=== PATIENT | female | born 1995 | race Caucasian/White ===

== ENCOUNTER 2017-03-13 09:31 | Emergency (ER) | payer MEDICAID, OTHER ==
[~2017-03-13] VITALS: Ht 167.6 cm; Wt 61.4 kg
[~2017-03-13 09:31] MED LIST: ACETAMINOPHEN W1 TA6 PO; CEPHALEXIN500 M1 PO; LEXAPRO20 MG PO; MAGIC MOUTH PO; MOTRIN 800800 MG/TAB PO; NO HOME MEDICATIONS; PRENATAL; ZITHROMAX500 M2 PO
[2017-03-13 09:34] VITALS: TEMP 98.3
[2017-03-13] MEDS ORDERED: NORCO 325 MG-51 TAB PO (10:47)
[2017-03-13 11:09] VITALS: BP 120/71; PULSE 64
== END 2017-03-13 11:12 | disposition home or self-care (01) ==
LOC: COL.ER 09:31
DX: S62.316A Displaced fracture of base of fifth metacarpal bone, right hand, initial encounter for closed fracture (principal); W22.8XXA Striking against or struck by other objects, initial encounter; Y92.009 Unspecified place in unspecified non-institutional (private) residence as the place of occurrence of the external cause

== ENCOUNTER 2018-09-27 11:15 | Emergency (ER) | payer MEDICAID ==
[~2018-09-27] VITALS: Ht 167.6 cm; Wt 55.5 kg
[~2018-09-27 11:15] MED LIST changes: +NORCO 325 MG-51 TAB PO
[2018-09-27 11:17] VITALS: TEMP 98
[2018-09-27] MEDS ORDERED: CEPHALEXIN500 M1 PO (13:19)
[2018-09-27 13:34] VITALS: BP 99/71; PULSE 82
== END 2018-09-27 13:45 | disposition home or self-care (01) ==
LOC: COL.ER 11:15
DX: S91.311A Laceration without foreign body, right foot, initial encounter (principal); Z23 Encounter for immunization; W25.XXXA Contact with sharp glass, initial encounter; Y92.009 Unspecified place in unspecified non-institutional (private) residence as the place of occurrence of the external cause

== ENCOUNTER 2018-10-05 11:52 | Emergency (ER) | payer MEDICAID ==
[2018-10-05 12:01] VITALS: BP 107/63; PULSE 83; TEMP 97.6
== END 2018-10-05 12:03 | disposition home or self-care (01) ==
LOC: COL.ER 11:52
DX: S91.311D Laceration without foreign body, right foot, subsequent encounter (principal); X58.XXXD Exposure to other specified factors, subsequent encounter

== ENCOUNTER 2018-12-23 10:58 | Emergency (ER) | payer MEDICAID ==
[~2018-12-23] VITALS: Ht 167.6 cm; Wt 53.3 kg
[2018-12-23 11:02] VITALS: BP 109/65; PULSE 87; TEMP 98.5
[2018-12-23] MEDS ORDERED: SPRINTEC 35 MCG1 TAB PO (11:16)
[2018-12-23] MEDS ORDERED: ADDERALL XR20 MG PO (11:17)
[2018-12-23] MEDS ORDERED: DESYREL 50MG50 MG PO (11:18)
[2018-12-23] MEDS ORDERED: MOBIC15 MG PO (11:19)
[2018-12-23] MEDS ORDERED: PROZAC 10MG10 MG PO (11:21)
[2018-12-23] MEDS ORDERED: PREDNISONE20 MG PO (11:22)
[2018-12-23] MEDS ORDERED: FLEXERIL5 MG PO (11:22)
== END 2018-12-23 11:45 | disposition home or self-care (01) ==
LOC: COL.ER 10:58
DX: L50.9 Urticaria, unspecified (principal); F32.9 Major depressive disorder, single episode, unspecified; F41.9 Anxiety disorder, unspecified; F98.8 Other specified behavioral and emotional disorders with onset usually occurring in childhood and adolescence

== ENCOUNTER 2019-01-13 06:42 | Emergency (ER) | payer MEDICAID ==
[~2019-01-13] VITALS: Ht 167.6 cm; Wt 53.6 kg
[~2019-01-13 06:42] MED LIST changes: +ADDERALL XR20 MG PO; +DESYREL 50MG50 MG PO; +FLEXERIL5 MG PO; +MOBIC15 MG PO; +PREDNISONE20 MG PO; +PROZAC 10MG10 MG PO; +SPRINTEC 35 MCG1 TAB PO
[2019-01-13 06:47] VITALS: TEMP 98.7
[2019-01-13] MEDS ORDERED: ATARAX 10MG10 MG/TAB PO (07:10)
[2019-01-13] MEDS ORDERED: FLEXERIL 1010 MG/TAB PO (07:29)
[2019-01-13 08:26] VITALS: BP 104/75; PULSE 78
== END 2019-01-13 08:43 | disposition home or self-care (01) ==
LOC: COL.ER 06:42
DX: S06.0X0A Concussion without loss of consciousness, initial encounter (principal); S16.1XXA Strain of muscle, fascia and tendon at neck level, initial encounter; S39.012A Strain of muscle, fascia and tendon of lower back, initial encounter; R40.2410 Glasgow coma scale score 13-15, unspecified time; V43.52XA Car driver injured in collision with other type car in traffic accident, initial encounter
CPT/HCPCS: J1200; J2765

== ENCOUNTER 2019-05-12 19:42 | Emergency (ER) | payer MEDICAID ==
[~2019-05-12] VITALS: Ht 167.6 cm; Wt 53.6 kg
[~2019-05-12 19:42] MED LIST changes: +ATARAX 10MG10 MG/TAB PO; +FLEXERIL 1010 MG/TAB PO
[2019-05-12 20:50] LABS: BASO % 0.1 % (0.0-2.0); EOS % 0.2 % (0-4.0); GRAN # 6.9 (1.4-6.5); GRAN % 73.6 % (42.2-75.2); HEMATOCRIT 40.7 % (37.0-47.0); HEMOGLOBIN 14.1 g/dl (12.5-16.0); LYMPH # 1.7 (1.2-3.4); MEAN CELL VOLUME 92 fl (80.0-100.0); MEAN CORPUSCULAR HEMOGLOBIN 32 pg (27.0-31.0); MEAN CORPUSCULAR HGB CONC 35 g/dl (33.0-37.0); MEAN PLATELET VOLUME 10.5 fl (7.4-10.4); MONO # 0.7 (0.1-0.6); MONO % 7.9 % (1.7-9.3); PLATELET COUNT 234 K/mm3 (130-400); RED BLOOD COUNT 4.43 M/mm3 (4.10-5.30); REDCELL DISTRIBUTION WIDTH-CV 12.3 % (11.5-14.5)
[2019-05-12 20:55] LABS: STREP SCREEN NEGATIVE
[2019-05-12 21:01] LABS: ALBUMIN 3.9 gm/dL (3.5-5.0); BILIRUBIN,TOTAL 0.8 mg/dL (0.0-1.0); C-REACTIVE PROTEIN 4.9 mg/dL (0.0-0.9); CALCIUM 8.8 mg/dL (8.4-10.2); CREATININE, serum 0.69 (0.52-1.25); POTASSIUM 3.9 mmol/L (3.4-5.0); TOTAL PROTEIN 7.3 gm/dL (6.4-8.2)
[2019-05-12] MEDS ORDERED: PREDNISONE20 MG PO (23:16)
[2019-05-12 23:35] VITALS: BP 98/52; PULSE 91; TEMP 98.4
== END 2019-05-12 23:35 | disposition home or self-care (01) ==
LOC: COL.ER 19:42
PROVIDERS: Physician Assistant
DX: L50.9 Urticaria, unspecified (principal); F32.9 Major depressive disorder, single episode, unspecified; G43.909 Migraine, unspecified, not intractable, without status migrainosus; F41.9 Anxiety disorder, unspecified
CPT/HCPCS: J1100; J1200; J1885; J2405; J7030

== ENCOUNTER → 2019-07-11 | Outpatient (CLI) | payer MEDICAID | LOC: COL.RAD 06-25 08:15 | DX: M54.5 Low back pain (principal); R20.9 Unspecified disturbances of skin sensation ==

== ENCOUNTER → 2019-07-23 | Outpatient (CLI) | payer MEDICAID ==
[~2019-07-23] VITALS: Ht 167.6 cm; Wt 54.4 kg
[~2019-07-23] MED LIST changes: +KLONOPIN 0.5MG0.5 MG PO; +KLONOPIN 1MG1 MG PO
[2019-07-23 13:39] VITALS: BP 104/70; PULSE 94
[2019-07-23 15:23] VITALS: BP 94/66; PULSE 80
--- NOTE | 2019-07-23 16:08 | NUR ---
WENT TO SPEAK TO DR REDDY REGARDING PT PAIN, NUMBNESS AND TINGLING. HE IS AARE THAT PT AWILL BE TRANSFERED TO AT 1600. REPORTED OFF TO CONCEPCION NARANJO. SPOKE TO DR REDDY AND LET HIM KNOW NOTHING IS CHANGED.
== END ==
LOC: COL.RAD 13:26
DX: M54.5 Low back pain (principal)
CPT/HCPCS: J3301

== ENCOUNTER 2019-10-22 22:02 | Emergency (ER) | payer MEDICAID ==
[~2019-10-22] VITALS: Ht 167.6 cm; Wt 52.3 kg
[2019-10-22 22:03] VITALS: TEMP 97.6
[2019-10-22 22:46] LABS: COLLECTION METHOD CLEAN CATCH
[2019-10-22 22:58] LABS: MUCOUS Present /lpf; PH 7 (5-8); URINE APPEARANCE Hazy; URINE BACTERIA Rare /hpf; URINE BILIRUBIN Negative (NEGATIVE); URINE BLOOD Negative (NEGATIVE); URINE COLOR Yellow; URINE GLUCOSE Negative (NEGATIVE); URINE KETONE Trace (NEGATIVE); URINE LEUKOCYTE ESTERASE Negative (NEGATIVE); URINE NITRATE Negative (NEGATIVE); URINE PROTEIN(semi-quant) Negative (NEGATIVE); URINE RBC 0-2 /hpf; URINE UROBILINOGEN Negative (NEGATIVE)
[2019-10-23 00:26] VITALS: BP 109/70; PULSE 100
== END 2019-10-23 00:30 | disposition home or self-care (01) ==
LOC: COL.ER 22:02
PROVIDERS: Nurse Practitioner
DX: S30.0XXA Contusion of lower back and pelvis, initial encounter (principal); S24.109A Unspecified injury at unspecified level of thoracic spinal cord, initial encounter; F41.9 Anxiety disorder, unspecified; G43.909 Migraine, unspecified, not intractable, without status migrainosus; Z91.040 Latex allergy status; Z87.891 Personal history of nicotine dependence; W01.0XXA Fall on same level from slipping, tripping and stumbling without subsequent striking against object, initial encounter
CPT/HCPCS: J1170; J1885

== ENCOUNTER → 2019-12-27 | Outpatient (CLI) | payer MEDICAID ==
[~2019-12-27] VITALS: Ht 167.6 cm; Wt 47.4 kg
[2019-12-27 07:01] VITALS: BP 108/75; PULSE 78
[2019-12-27 07:45] VITALS: BP 101/70; PULSE 82
--- NOTE | 2019-12-27 08:15 | NUR ---
Pt able to stand and bear weight on left foot. Reports pain decreased to leg. Pt walks a few steps. Pt out to car per wheelchair. Pt up and into car without assistance.
== END ==
LOC: COL.RAD 06:30
DX: M51.26 Other intervertebral disc displacement, lumbar region (principal)
CPT/HCPCS: J3301

== ENCOUNTER 2020-01-31 17:55 | Emergency (ER) | payer MEDICAID ==
[~2020-01-31] VITALS: Ht 170.2 cm; Wt 52.3 kg
[2020-01-31 18:02] VITALS: BP 109/76; TEMP 99
[2020-01-31 18:47] LABS: COLLECTION METHOD CLEAN CATCH
[2020-01-31 18:52] LABS: BASO % 0.3 % (0.0-2.0); EOS # 0.1 (0.0-0.7); EOS % 1.2 % (0-4.0); GRAN # 3.7 (1.4-6.5); HEMATOCRIT 41.6 % (37.0-47.0); HEMOGLOBIN 14.2 g/dl (12.5-16.0); LYMPH # 2.3 (1.2-3.4); LYMPH % 34.2 % (20.0-51.0); MEAN CELL VOLUME 94 fl (80.0-100.0); MEAN CORPUSCULAR HEMOGLOBIN 32 pg (27.0-31.0); MEAN CORPUSCULAR HGB CONC 34 g/dl (33.0-37.0); MEAN PLATELET VOLUME 10.1 fl (7.4-10.4); MONO # 0.6 (0.1-0.6); MONO % 9.2 % (1.7-9.3); PLATELET COUNT 212 K/mm3 (130-400); RED BLOOD COUNT 4.45 M/mm3 (4.10-5.30)
[2020-01-31 18:54] LABS: MUCOUS Present /lpf; PH 5 (5-8); SQUAMOUS EPITHELIAL 0-2 /hpf; URINE APPEARANCE Clear; URINE BACTERIA None Seen /hpf; URINE BILIRUBIN Negative (NEGATIVE); URINE BLOOD 2+ (NEGATIVE); URINE COLOR Yellow; URINE GLUCOSE Negative (NEGATIVE); URINE KETONE Negative (NEGATIVE); URINE LEUKOCYTE ESTERASE Negative (NEGATIVE); URINE NITRATE Negative (NEGATIVE); URINE PROTEIN(semi-quant) 1+ (NEGATIVE)
[2020-01-31 19:01] LABS: ALBUMIN 4.2 gm/dL (3.5-5.0); BILIRUBIN,TOTAL 0.9 mg/dL (0.0-1.0); CALCIUM 9.1 mg/dL (8.4-10.2); CREATININE, serum 0.69 (0.52-1.25); POTASSIUM 3.9 mmol/L (3.4-5.0); TOTAL PROTEIN 7.6 gm/dL (6.4-8.2)
[2020-01-31] MEDS ORDERED: SPRINTEC 35 MCG1 TAB PO (19:53)
[2020-01-31 19:56] VITALS: PULSE 99
== END 2020-01-31 19:56 | disposition home or self-care (01) ==
LOC: COL.ER 17:55
PROVIDERS: Emergency Medicine
DX: S39.91XA Unspecified injury of abdomen, initial encounter (principal); N93.8 Other specified abnormal uterine and vaginal bleeding; Y04.2XXA Assault by strike against or bumped into by another person, initial encounter

== ENCOUNTER → 2020-05-12 | Outpatient (CLI) | payer MEDICAID | LOC: MHCPAIN 13:03 | DX: M53.3 Sacrococcygeal disorders, not elsewhere classified (principal); M54.5 Low back pain; G89.29 Other chronic pain; M79.2 Neuralgia and neuritis, unspecified | CPT/HCPCS: G0463 ==

== ENCOUNTER 2020-06-06 10:03 | Emergency (ER) | payer MEDICAID ==
[~2020-06-06] VITALS: Ht 167.6 cm; Wt 57.3 kg
[2020-06-06 11:20] LABS: COLLECTION METHOD CLEAN CATCH
[2020-06-06 11:27] LABS: BASO % 0.2 % (0.0-2.0); GRAN # 3.2 (1.4-6.5); GRAN % 73.4 % (42.2-75.2); HEMATOCRIT 45.6 % (37.0-47.0); HEMOGLOBIN 15.6 g/dl (12.5-16.0); LYMPH # 0.8 (1.2-3.4); MEAN CELL VOLUME 93 fl (80.0-100.0); MEAN CORPUSCULAR HEMOGLOBIN 32 pg (27.0-31.0); MEAN CORPUSCULAR HGB CONC 34 g/dl (33.0-37.0); MEAN PLATELET VOLUME 10.6 fl (7.4-10.4); MONO # 0.3 (0.1-0.6); MONO % 7.9 % (1.7-9.3); PLATELET COUNT 125 K/mm3 (130-400); RED BLOOD COUNT 4.88 M/mm3 (4.10-5.30); REDCELL DISTRIBUTION WIDTH-CV 11.5 % (11.5-14.5)
[2020-06-06 11:28] LABS: MUCOUS Present /lpf; PH 6 (5-8); URINE APPEARANCE Clear; URINE BACTERIA None Seen /hpf; URINE BILIRUBIN Negative (NEGATIVE); URINE BLOOD Negative (NEGATIVE); URINE COLOR Yellow; URINE GLUCOSE Negative (NEGATIVE); URINE KETONE Negative (NEGATIVE); URINE LEUKOCYTE ESTERASE Negative (NEGATIVE); URINE NITRATE Negative (NEGATIVE); URINE PROTEIN(semi-quant) Negative (NEGATIVE); URINE RBC 0-2 /hpf; URINE UROBILINOGEN Negative (NEGATIVE)
[2020-06-06 11:44] LABS: ALBUMIN 4.4 gm/dL (3.5-5.0); BILIRUBIN,TOTAL 0.5 mg/dL (0.0-1.0); C-REACTIVE PROTEIN 2.5 mg/dL (0.0-0.9); CALCIUM 9.3 mg/dL (8.4-10.2); CREATININE, serum 0.77 (0.52-1.25)
[2020-06-06 12:01] LABS: STREP SCREEN NEGATIVE
[2020-06-06 12:55] VITALS: TEMP 99
[2020-06-06 13:30] VITALS: BP 101/48; PULSE 92
== END 2020-06-06 13:31 | disposition home or self-care (01) ==
LOC: COL.ER 10:03
PROVIDERS: Nurse Practitioner
DX: R50.9 Fever, unspecified (principal); R21 Rash and other nonspecific skin eruption; L29.8 Other pruritus; Z20.828 Contact with and (suspected) exposure to other viral communicable diseases; Z91.040 Latex allergy status
CPT/HCPCS: J7030

== ENCOUNTER 2021-03-11 19:11 | Emergency (ER) | payer MEDICAID ==
[~2021-03-11] VITALS: Ht 167.6 cm; Wt 52.3 kg
[2021-03-11 19:12] VITALS: TEMP 98.9
[2021-03-11 19:32] LABS: BASO # 0.1 (0.0-0.2); BASO % 0.6 % (0.0-2.0); EOS # 0.1 (0.0-0.7); EOS % 0.6 % (0-4.0); GRAN # 4.8 (1.4-6.5); GRAN % 52.9 % (42.2-75.2); HEMATOCRIT 46.1 % (37.0-47.0); HEMOGLOBIN 15.8 g/dl (12.5-16.0); LYMPH # 3.4 (1.2-3.4); LYMPH % 37.5 % (20.0-51.0); MEAN CELL VOLUME 90 fl (80.0-100.0); MEAN CORPUSCULAR HEMOGLOBIN 31 pg (27.0-31.0); MEAN CORPUSCULAR HGB CONC 34 g/dl (33.0-37.0); MEAN PLATELET VOLUME 9.8 fl (7.4-10.4); MONO # 0.7 (0.1-0.6); MONO % 8.1 % (1.7-9.3); PLATELET COUNT 217 K/mm3 (130-400); RED BLOOD COUNT 5.14 M/mm3 (4.10-5.30); REDCELL DISTRIBUTION WIDTH-CV 12.5 % (11.5-14.5)
[2021-03-11 19:48] LABS: ALANINE AMINOTRANSFERASE 24 U/L (4-34); ALBUMIN 4.7 gm/dL (3.5-5.0); ALKALINE PHOSPHATASE 97 U/L (50-136); ANION GAP 10 mmol/L (7-16); AST,SGOT 36 U/L (15-37); BLOOD UREA NITROGEN 7 mg/dL (7-17); CALCIUM 9.2 mg/dL (8.4-10.2); CARBON DIOXIDE 26 mmol/L (22-30); CHLORIDE 101 mmol/L (98-107); CREATININE, serum 0.79 (0.52-1.25); GLUCOSE 248 mg/dL (74-106); POTASSIUM 3.1 mmol/L (3.4-5.0); SODIUM 137 mmol/L (137-145); TOTAL PROTEIN 7.7 gm/dL (6.4-8.2)
[2021-03-11 19:49] LABS: ACETAMINOPHEN < 10 ug/mL (10-30); ALCOHOL(ethanol),MEDICAL < 10 mg/dL; SALICYLATE < 1.0 mg/dL
[2021-03-11 20:00] VITALS: BP 126/87; PULSE 105
[2021-03-11 20:14] LABS: PROLACTIN 58.5 ng/mL (3.0-18.6)
== END 2021-03-11 20:00 | disposition left against medical advice (07) ==
LOC: COL.ER 19:11
PROVIDERS: Emergency Medicine
DX: R40.4 Transient alteration of awareness (principal); G40.909 Epilepsy, unspecified, not intractable, without status epilepticus; F41.9 Anxiety disorder, unspecified; F90.9 Attention-deficit hyperactivity disorder, unspecified type; Z79.899 Other long term (current) drug therapy

== ENCOUNTER 2021-11-18 20:53 | Emergency (ER) | payer MEDICAID ==
[~2021-11-18] VITALS: Ht 165.1 cm; Wt 54.5 kg
[2021-11-18 21:55] LABS: STREP SCREEN NEGATIVE
[2021-11-18 23:04] LABS: MONOSCREEN POSITIVE
[2021-11-18 23:25] VITALS: BP 90/59; PULSE 91; TEMP 98.2
== END 2021-11-18 23:32 | disposition home or self-care (01) ==
LOC: COL.ER 20:53
PROVIDERS: Nurse Practitioner Primary Care
DX: B27.90 Infectious mononucleosis, unspecified without complication (principal); Z20.822 Contact with and (suspected) exposure to COVID-19; Z28.310 Unvaccinated for COVID-19

== ENCOUNTER 2022-01-27 11:29 | Emergency (ER) | payer MEDICAID ==
[~2022-01-27] VITALS: Ht 170.2 cm; Wt 54.5 kg
[2022-01-27 11:33] VITALS: TEMP 97.1
[2022-01-27] MEDS ORDERED: CRUTCHES MC (13:25)
[2022-01-27 13:50] VITALS: BP 108/78; PULSE 90
== END 2022-01-27 13:50 | disposition home or self-care (01) ==
LOC: COL.ER 11:29
DX: S82.101A Unspecified fracture of upper end of right tibia, initial encounter for closed fracture (principal); S00.93XA Contusion of unspecified part of head, initial encounter; S60.512A Abrasion of left hand, initial encounter; S60.511A Abrasion of right hand, initial encounter; Z91.040 Latex allergy status; Z87.891 Personal history of nicotine dependence; Z28.310 Unvaccinated for COVID-19; V28.0XXA Motorcycle driver injured in noncollision transport accident in nontraffic accident, initial encounter; Y92.410 Unspecified street and highway as the place of occurrence of the external cause
CPT/HCPCS: J2270; L1830; L1846

== ENCOUNTER 2022-07-26 09:00 | Emergency (ER) | payer MEDICAID ==
[~2022-07-26] VITALS: Ht 167.6 cm; Wt 59.1 kg
[~2022-07-26 09:00] MED LIST changes: +CRUTCHES MC
[2022-07-26 09:21] VITALS: TEMP 98.3
[2022-07-26 09:52] LABS: COLLECTION METHOD CLEAN CATCH
[2022-07-26 10:08] LABS: MUCOUS Present (NOT PRESENT); URINE BACTERIA Rare /hpf (NONE SEEN); URINE RBC >50 /hpf (0-2)
[2022-07-26 10:10] LABS: URINE APPEARANCE Cloudy (CLEAR/HAZY); URINE BLOOD 3+ (NEGATIVE); URINE COLOR Yellow (YELLOW); URINE GLUCOSE Negative (NEGATIVE); URINE KETONE TRACE (NEGATIVE); URINE NITRATE Negative (NEGATIVE); URINE PROTEIN(semi-quant) 2+ (NEGATIVE); URINE UROBILINOGEN 0.2 E.U/dL (0.2-1.0)
[2022-07-26] MEDS ORDERED: CEPHALEXIN500 M1 PO (10:17)
[2022-07-26 10:38] VITALS: BP 98/62; PULSE 88
== END 2022-07-26 11:23 | disposition home or self-care (01) ==
LOC: COL.ER 09:00
PROVIDERS: Emergency Medicine
DX: N30.91 Cystitis, unspecified with hematuria (principal); Z91.040 Latex allergy status; Z28.310 Unvaccinated for COVID-19

== ENCOUNTER 2022-11-25 19:18 | Emergency (ER) | payer MEDICAID ==
[~2022-11-25] VITALS: Ht 165.1 cm; Wt 59.1 kg
[2022-11-25 19:21] VITALS: TEMP 99.5
[2022-11-25 19:57] LABS: BASO % 0.2 % (0.0-2.0); GRAN # 8.9 K/mm3 (1.4-6.5); GRAN % 79.7 % (42.2-75.2); HEMATOCRIT 40.4 % (37.0-47.0); HEMOGLOBIN 13.3 g/dl (12.5-16.0); LYMPH # 1.5 K/mm3 (1.2-3.4); LYMPH % 13.2 % (20.0-51.0); MEAN CELL VOLUME 94 fl (80.0-100.0); MEAN CORPUSCULAR HEMOGLOBIN 31 pg (27-31); MEAN CORPUSCULAR HGB CONC 33 g/dl (33.0-37.0); MEAN PLATELET VOLUME 10.5 fl (7.4-10.4); MONO # 0.8 K/mm3 (0.1-0.6); MONO % 6.7 % (1.7-9.3); PLATELET COUNT 240 K/mm3 (130-400); RED BLOOD COUNT 4.31 M/mm3 (4.10-5.30); REDCELL DISTRIBUTION WIDTH-CV 12.7 % (11.5-14.5)
[2022-11-25 20:22] LABS: ALBUMIN 4.3 gm/dL (3.5-5.0); BILIRUBIN,TOTAL 0.6 mg/dL (0.2-1.2); CALCIUM 9.5 mg/dL (8.4-10.2); CREATININE, serum 0.84 mg/dL (0.57-1.11); POTASSIUM 3.8 mmol/L (3.5-4.5); TOTAL PROTEIN 7.8 gm/dL (6.2-8.1)
[2022-11-25 21:39] VITALS: BP 112/71; PULSE 96
== END 2022-11-25 21:49 | disposition home or self-care (01) ==
LOC: COL.ER 19:18
PROVIDERS: Emergency Medicine
DX: R40.4 Transient alteration of awareness (principal); T40.2X1A Poisoning by other opioids, accidental (unintentional), initial encounter; Z91.040 Latex allergy status; Z28.311 Partially vaccinated for COVID-19
CPT/HCPCS: J2405

== ENCOUNTER 2023-08-19 01:16 | Emergency (ER) | payer MEDICAID ==
[~2023-08-19] VITALS: Ht 167.6 cm; Wt 63.6 kg
[~2023-08-19 01:16] MED LIST changes: +ATARAX 25MG25 MG/TAB PO; +CIPRODEX OT; +LEVAQUIN 5500 MG/TA1 PO; +PROZAC40 MG PO
[2023-08-19 01:28] VITALS: TEMP 97.8
[2023-08-19] MEDS ORDERED: CEPHALEXIN500 M1 PO (01:44)
[2023-08-19] MEDS ORDERED: NAPROSYN500 MG PO (01:44)
[2023-08-19] MEDS ORDERED: Clindamycin 150 MG CAP PO ONE (01:45)
[2023-08-19] MEDS ORDERED: Cephalexin 500 MG CAP PO ONE (01:45)
[2023-08-19] MEDS ORDERED: Naproxen 250 MG TAB PO ONE (01:45)
[2023-08-19 02:07] VITALS: BP 100/68; PULSE 97
== END 2023-08-19 02:07 | disposition home or self-care (01) ==
LOC: COL.ER 01:16
DX: L03.113 Cellulitis of right upper limb (principal); Z87.81 Personal history of (healed) traumatic fracture; Z91.040 Latex allergy status

== ENCOUNTER 2023-08-23 18:05 | Emergency (ER) | payer MEDICAID ==
[~2023-08-23] VITALS: Ht 167.6 cm; Wt 63.6 kg
[~2023-08-23 18:05] MED LIST changes: +NAPROSYN500 MG PO
[2023-08-23 18:37] VITALS: TEMP 98.2
[2023-08-23] MEDS ORDERED: BACTRIM DS 8001 TAB PO (18:59)
[2023-08-23 19:19] VITALS: BP 106/84; PULSE 102
== END 2023-08-23 19:21 | disposition home or self-care (01) ==
LOC: COL.ER 18:05
DX: L03.115 Cellulitis of right lower limb (principal); Z91.040 Latex allergy status

== ENCOUNTER 2023-12-14 08:36 | Inpatient (IN) | payer MEDICAID ==
[2023-12-14] VITALS (13 sets, daily range): BP systolic 107–121; BP diastolic 60–84; PULSE 69–102; TEMP 97.8–98.2
[~2023-12-14] VITALS: Ht 170.2 cm; Wt 68.2 kg
[~2023-12-14 08:36] MED LIST changes: +BACTRIM DS 8001 TAB PO
[2023-12-14] MEDS ORDERED: Measles/Mumps/Rubella Virus Vaccine Live w Diluent 0.5 ML VIAL SQ SCH (08:45)
[2023-12-14] MEDS ORDERED: Naloxone 0.4 MG/ML VIAL IV PRN (08:45)
[2023-12-14] MEDS ORDERED: Phenylephrine/Mineral Oil/Petrolatum 57 GM TUBE RC PRN (08:45)
[2023-12-14] MEDS ORDERED: Mag/Al Hydrox/Simeth Susp 30 ML CUP PO PRN (08:45)
[2023-12-14] MEDS ORDERED: Loratadine 10 MG TAB PO PRN (08:45)
[2023-12-14] MEDS ORDERED: LR 1,000 ML IV ONE (08:45)
[2023-12-14] MEDS ORDERED: Witch Hazel 50% Pads Bulk TUB TP PRN (08:45)
[2023-12-14] MEDS ORDERED: Magnes Hydrox (MOM) 80 MG/ML 30 ML CUP PO PRN (08:45)
[2023-12-14] MEDS ORDERED: LR & Oxytocin 500 ML IV SCH (09:00)
[2023-12-14 09:34] LABS: BASO # 0.1 K/mm3 (0.0-0.2); BASO % 0.3 % (0.0-2.0); EOS # 0.1 K/mm3 (0.0-0.7); EOS % 0.4 % (0.0-4.0); GRAN # 14.7 K/mm3 (1.4-6.5); GRAN % 85.3 % (42.2-75.2); HEMOGLOBIN 11.3 g/dl (12.5-16.0); LYMPH # 1.3 K/mm3 (1.2-3.4); LYMPH % 7.7 % (20.0-51.0); MEAN CELL VOLUME 90 fl (80.0-100.0); MEAN CORPUSCULAR HEMOGLOBIN 29 pg (27-31); MEAN CORPUSCULAR HGB CONC 32 g/dl (33.0-37.0); MEAN PLATELET VOLUME 11.3 fl (7.4-10.4); MONO % 5.9 % (1.7-9.3); PLATELET COUNT 209 K/mm3 (130-400); RED BLOOD COUNT 3.88 M/mm3 (4.10-5.30); REDCELL DISTRIBUTION WIDTH-CV 14.4 % (11.5-14.5)
[2023-12-14 09:35] LABS: HEMATOCRIT 34.9 % (37.0-47.0)
[2023-12-14 10:09] LABS: HIV 1/2 Antibodies Non-Reactive; HIV-1p24 Antigen Non-Reactive
--- NOTE | 2023-12-14 10:30 | NUR ---
PT REQUESTING TO AMBULATE AND ATTEMPT TO VOID. LOCHIA WNL, FUNDUS FIRM @ [facility]. MATERNAL VSS. AMBULATORY WITH STEADY GAIT TO RESTROOM. NEW GOWN, UNDERWEAR, PAD, ICE PACK, AND STONE CARE PROVIDED. PT ABLE TO VOID 250CC OF BLOOD TINGED URINE. INSTRUCTED ON STONE BOTTLE AND STONE CARE, WELL IMPORTANCE OF THREE VOIDS PRIOR TO IV REMOVAL. PT AGREEABLE TO POC. FOLLOWING TOILETING, PT GOES TO NURSERY TO VISIT . PT'S SISTER ARRIVES AT THIS TIME FOR SUPPORT. SISTER TO NURSERY WELL.
[2023-12-14 10:38] LABS: TRICYCLIC ANTIDEPRESS URINE NEGATIVE (NEGATIVE)
[2023-12-14] MEDS ORDERED: Ibuprofen 600 MG TAB PO SCH (11:30)
[2023-12-14] MEDS ORDERED: Acetaminophen 500 MG TAB PO SCH (11:30)
--- NOTE | 2023-12-14 11:35 | NUR ---
0810 THIS NURSE GOT A CALL FROM EMS [facility] REGISTERED NURSE STATING THEY WERE BRINGING A PATIENT VIA EMS THAT HAD JUST DELIVERED A BABY THAT APPEARED TO BE CLOSE TO FULL TERM AT HOME, PATIENT STATES SHE DID NOT KNOW SHE WAS AND THOUGHT SHE WAS JUST GONNA HAVE A BOWEL MOVEMENT. PATIENT ALSO STATES HER FRIEND DELIVEREED BABY AND CALLED 911. 0820 PATIENT HERE VIA EMS. PLACENTA STILL UNDELIVERED CORD HAD BEEN CLAMPED BY SOMEONE WITH A BREAD TWISTY TIE AND CUT. BABY IN MOMS ARMS AND CRYING ON ADMIT. PATIENT ASSISTED TO BED. MINIMAL BLEEDING NOTED. DR BECK CALLED AND UPDATED AND ASKED TO COME FOR DELIVERY OF PLACENTA. PATIENT ALERT AND DENIES PAIN. 0840 DR BECK AT BEDSIDE FOR DELIVEREY OF PLACENTA. 0846 PLACENTA DELIVERED AT THIS TIME. PITOCIN STARTED AT 333 PER PROTOCOL. TOLERATE WELL. BLEEDING MINIMAL. NO REPAIR NEEDED. BABY TAKEN TO NSY DUE TO LOW TEMP. FULL ASSESSMENT COMPLETED. PATIENT ADMITTED TO DRUG USE. FULL OB PANEL DRAWN AT THIS TIME AND URINE DRUG SCREEN SENT TO LAB. RJ JAVIER ALSO AT BEDSIDE HELPING. PATIENT ADMITTED TO DAILY USE OF METH AND AMTHEMPHETAMINES.
--- NOTE | 2023-12-14 12:53 | NUR ---
asphalt worker received a consult for a mother having a home and not knowing she was , no care, and using substances. SW reviewed the chart and notes pt tested positive for meth, amphetamines, benzos, and marijuana. Pt was in the ER many times from May 2023-July 2023, but never was tested for . SOREN spoke with CECIL RN who advised mother admitted to using meth twice a week and fentanyl every day. SW was informed pt has an swmpm-tmei-djt son who lives with his father. SW was informed baby will be monitored for withdrawl sx for 5 days and could potentially transfer to [facility] if he scores too high. Nurse reports pt was estimated to be 37 weeks gestation. SW spoke with patient alone in her room. She inquired if SW could come back later as she was trying to sleep due to the busy day, then her sister is coming. SW advised she would prefer not to due to her sister coming and having to work around that. Pt was understanding and agreeable. Pt reports she lives at [address] [place] [address], not [place]. She confirmed her phone number and insurance as [employer]. She verified her contacts as her mother and sister, Alexandra. She reports her sister, Emani lives in [place] and is the one visiting today. She states she did not know she was and had no symptoms at all. She compared it to her previosuly with her pbreb-[id number]-ocb where she gained 60 pounds, and did not this time around. She reports her son is with his father in [place] and she does get to visit him a few times a week. She reports that she will be getting a job and takes the bus or her friend drives her places. She has not yet thought about dialysis patient care technician needs. She states that her family is a good support. She did not state any relationship with FOB, and reports "he'll be with my side" in response to any further relations with FOB and . Pt reports she is not on WIC or food stamps. She intends to formula feed infant. She states her sister is bringing her a crib and carseat as she does not have any baby items at this time. She reports to not be connected with any other resources. SW inquired about mental health or substance use concerns. She reports to MH concerns. She admitted to using fentayl and meth. She reports "I don't know" when asked her reasons for use. She states "I plan to stop, I will be fine, I did it before." Pt reports she used after her eldest son and likely has used the whole this time around. SW provided [facility] Resource Guide and [facility] resource list for any additional needs. Pt denies any PPD. SW advised that she will be making a CPS report due to the substance use concerns with baby. Pt verbalized understanding and remained pleasant. She reports she "figured" this would happen. She inquired about next steps for discharging with baby. SW advised she is not sure what the result will be, but [facility] will visit with her and discuss options. Pt reports she has been talking with her two sisters and her sister, Emani has been trying to have a baby and she would prefer her infant to go there. Or, she states her sister, Alexandra works for [facility] and would want the infant there either. SW inquired about if pt would be interested in adoption due to these discussions she has had. Pt reports she is not sure at this time due to being tired and will think about it. Pt did not yet name the . SW advised she will follow-up later to see if she needs further resources and assistance. Pt had no further questions. SOREN spoke with Dr. Roy who reports waiting for DCF to respond is adequate at this time. She states baby will need 5 days in the hospital to monitor for withdrawl; if it is above 8 they will transfer infant. They will score every [address] Roy does not think there needs to be police involvement at this time. SOREN made CPS report #[id number]. 1:22PM- SOREN left a voicemail with CPS It Lead, Paula Francisco to see if report screened in. p: [phone]
--- NOTE | 2023-12-14 14:13 | NUR ---
VAPE DEVICE VISIBLE IN PATIENTS PURSE. REVIEWED SMOKING/VAPING POLICY. TWO SISTERS AT BEDSIDE AGREEABLE TO REMOVE VAPE AND TAKE HOME WITH THEM. PT AGREEABLE.
--- NOTE | 2023-12-14 15:22 | NUR ---
PT RESTING IN ROOM VISITING WITH TWO SISTERS SINCE LEAVING THE NURSERY DURING INITIAL VISIT WITH INFANT THIS AM. THIS RN EDUCATES PT SHE IS ALLOWED AND ENCOURAGED TO VISIT INFANT FREQUENTLY SHE WANTS, PT ACKNOWLEDGES EDUCATION AND STATES SHE IS "JUST GOING TO REST FOR AWHILE" BUT TELLS HER TWO SISTERS THEY CAN "GO SEE HIM IF THEY WANT". NURSERY VISITATION POLICY REVIEWED, PT DECIDING AT THIS TIME WHICH OF THE TWO SISTERS SHE IS GOING TO ALLOW THE WRISTBAND FOR "SUPPORT PERSON" AND ALLOW TO GO IN AND OUT OF NURSERY FOR VISITATION.
[2023-12-14] MEDS ORDERED: Sennosides/Docusate 8.6-50 MG TAB PO SCH (17:00)
--- NOTE | 2023-12-14 17:42 | NUR ---
PT TO NURSERY TO VISIT INFANT. PT'S SISTER CHANELL HAS THE SUPPORT BAND AND IS IN NURSERY WELL.
[2023-12-14] MEDS ORDERED: traZODone 50 MG TAB PO PRN (21:00)
[2023-12-14 22:02] LABS: COLLECTION METHOD CATHETER
[2023-12-14 22:13] LABS: URINE APPEARANCE TURBID (CLEAR/HAZY); URINE BLOOD 3+ (NEGATIVE); URINE COLOR Dark Yellow (YELLOW); URINE GLUCOSE 1+ (NEGATIVE); URINE KETONE 2+ (NEGATIVE); URINE NITRATE NEGATIVE (NEGATIVE); URINE PROTEIN(semi-quant) 1+ (NEGATIVE)
[2023-12-14 22:25] LABS: AMORPHOUS CRYSTAL PRESENT (NOT PRESENT); URINE BACTERIA MANY /hpf (NONE SEEN); URINE CALCIUM OXALATE CRYSTAL PRESENT (NOT PRESENT); URINE WBC 0-2 /hpf (0-2)
[2023-12-15 09:00] VITALS: BP 105/70; PULSE 50; TEMP 97.9
--- NOTE | 2023-12-15 09:32 | NUR ---
SOREN received email correspondence from CPS worker Paula Borden inquring about the 's whereabouts. SW called and left a voicemail with her to provide further information. SOREN later receieved a call back and she will come to visit pt and infant around 11am.
--- NOTE | 2023-12-15 10:50 | NUR ---
Initial visit; Patient thanked Budget Counselor for looking in on her and and offering congratulations for the of her son. She states that she and her are trying to decide a middle name for their son. Budget Counselor wished them well and God's blessings.
== END 2023-12-15 15:15 | disposition home or self-care (01) | DRG 776 ==
LOC: LDR 08:36 → OB 08:36
PROVIDERS: ADMIT Obstetrics & Gynecology
PROC: 10E0XZZ Delivery of Products of Conception, External Approach (ICD-10-PCS; principal; 2023-12-14)
DX: Z39.0 Encounter for care and examination of mother immediately after delivery (principal); O99.325 Drug use complicating the puerperium; F15.10 Other stimulant abuse, uncomplicated; F12.10 Cannabis abuse, uncomplicated; O71.82 Other specified trauma to perineum and vulva
CPT/HCPCS: J2590; J7120